=== PATIENT | female | born 1985 ===

== ENCOUNTER 2020-10-27 11:13 | Day surgery (SDC) | payer BC ==
--- NOTE | 2020-10-24 10:36 | History and Physical Report ---
History of Present Illness Date of examination: 10/27/20 History of present illness: 35 yo desires sterilization. As a result, she will present on 10/27/20 for her Lap BTL. PT seen and counseled via search director. No other complaints. No VB, d/c or pelvic pain. Past History Past Medical History: no pertinent history Past Surgical History: cholecystectomy, section Social history: no significant social history - Obstetrical History : 4 Para: 4 Medications and Allergies Allergies Allergy/AdvReac Type Severity Reaction Status Date / Time No Known Allergies Allergy Unverified 10/20/20 16:47 Home Medications Medication Instructions Recorded Confirmed Last Taken Type No Known Home Medications [No 10/20/20 10/20/20 Unknown History Reported Home Medications] Review of Systems All systems: negative (except HPI) - Physical Exam Cardiovascular: Regular rate, No murmurs Lungs: Positive: Clear to auscultation, Normal air movement Abdomen: Positive: normal appearance, soft. Negative: tenderness Vulva: both: normal Vagina: Positive: normal moisture. Negative: discharge Cervix: Negative: lesion, discharge Uterus: Positive: normal size, normal contour Adnexa: both: normal Results Result Diagrams: 10/25/20 10:15 All other labs normal. Assessment and Plan - Patient Problems (1) Sterilization Current Visit: No Status: Acute Plan to address problem: PT for Lap BTL on 10/27/20. PT fully consented for surgery including the approximately 07/999 risk of failure. She understands and accepts that. Patient fully consented for the surgery. Risks, benefits, and alternatives were all discussed with the patient including risk of bleeding, infection, and potential for injury. Patient understands and accepts these risks. Patient agrees to proceed with surgery. All questions were answered. H&P is up-to-date
[2020-10-25 10:53] LABS: Hematocrit 32.4 % (30.3-42.9); Hemoglobin 10.7 gm/dl (10.1-14.3); Mean Corpuscular HGB Conc 33 % (30-34); Mean Corpuscular Volume 80 fl (79-97); Platelet Count 270 K/mm3 (140-440); Red Blood Count 4.03 M/mm3 (3.65-5.03); Red Cell Distribution Width 16.6 % (13.2-15.2)
[~2020-10-27 11:13] MED LIST: ACETAMINOPHEN 500 MG TAB PO SCH; CELECOXIB 200 MG CAP PO NR; GABAPENTIN 300 MG CAP PO NR; LACTATED RINGERS 1,000 ML IV SCH; MIDAZOLAM 2 MG/2 ML INJ IV NR; SCOPOLAMINE TRANSDERMAL PATCH 72 HR TD NR
[2020-10-27] MEDS ORDERED: ONDANSETRON 4 MG/2 ML INJ IV PRN (12:02)
--- NOTE | 2020-10-27 12:02 | Anesthesia Day of Surgery ---
Anesthesia Day of Surgery - Day of Surgery Patient Examined: Yes Patient H&P Reviewed: Yes Patient is NPO: Yes
--- NOTE | 2020-10-27 12:02 | Anesthesia Consultation ---
Anesthesia Consult and Med Hx Date of service: 10/27/20 - Airway Anesthetic Teeth Evaluation: Good ROM Head & Neck: Adequate Mental/Hyoid Distance: Adequate Mallampati Class: Class I Intubation Access Assessment: Good - Pre-Operative Health Status ASA Pre-Surgery Classification: ASA1 Proposed Anesthetic Plan: General - Pulmonary Hx Smoking: No Hx Respiratory Symptoms: No - Cardiovascular System Hx Hypertension: No - Central Nervous System CVA: No - Endocrine Hx Renal Disease: No Hx Liver Disease: No Hx Insulin Dependent Diabetes: No Hx Non-Insulin Dependent Diabetes: No Hx Thyroid Disease: No - Other Systems Hx Obesity: Yes (BMI 33) - Additional Comments Anesthesia Medical History Comments: No hx anesthetic complications.
[2020-10-27] MEDS ORDERED: fentaNYL 100 MCG/2 ML INJ ONE (12:55)
[2020-10-27] MEDS ORDERED: propofoL 200 MG/20 ML VIAL IV ONE (12:56)
[2020-10-27] MEDS ORDERED: BUPIVACAINE/PF (0.25%) 2.5 MG/ML 30 ML VIAL INFILTRATI ONE (12:56)
[2020-10-27] MEDS ORDERED: GLYCOPYRROLATE 0.4 MG/2 ML INJ ONE ×2 (14:05→14:35)
[2020-10-27] MEDS ORDERED: NEOSTIGMINE 10MG/10 ML INJ MDV ONE (14:05)
[2020-10-27] MEDS ORDERED: SODIUM CHLORIDE 0.9% IRR 1,500 ML BOTTLE IR ONE (14:09)
[2020-10-27] MEDS ORDERED: BUPIVACAINE/PF (0.5%) 5 MG/1 ML 30 ML VIAL INFILTRATI ONE (14:09)
[2020-10-27] MEDS ORDERED: KETOROLAC 30 MG/1 ML INJ ONE (14:11)
--- NOTE | 2020-10-27 14:16 | Post Operative Note ---
Date of procedure: 10/27/20 Pre-op diagnosis: Sterilization Post-op diagnosis: same Findings: Normal uterus, tubes, ovaries. General abdominal survey also within normal limits. No significant scarring from her prior noted. Procedure: Indication: 35-year-old desires sterilization. As a result, patient here for a laparoscopic bilateral tubal ligation with Filshie clips. Procedure: Laparoscopic bilateral tubal ligation. Patient taken the operating room and prepped and draped in usual fashion. Attention was first turned vaginally where single-tooth tenaculum was applied to the anterior lip of the cervix and an acorn uterine manipulator was placed. Attention was now turned abdominally where a 5 mm incision was made in the umbilicus. Veres needle then placed in the abdominal cavity. The abdomen was appropriately insufflated with CO2 gas. Veres needle removed and the 5 mm trocar was placed in abdominal cavity. Placement confirmed with the camera. Attention was turned suprapubically where an 8 mm incision was made and the 8 mm trocar was placed suprapubically in the midline under direct visualization. Trocar placed successfully and without difficulty. Attention was first turned to assess in the abdomen and pelvis. Findings noted above. Attention turned to the tubal ligation where a Filshie clip was applied to each tube. Each clip encompassed the full width of the tube on each side and good hemostasis was not ed afterwards on both sides. At this point the abdomen was fully desufflated. Trochars were removed. Trocar sites were closed with 4-0 Vicryl in a subcuticular fashion followed by Marcaine. The acorn uterine manipulator and single-tooth tenaculum were removed. Procedure concluded at this point. Patient tolerated the procedure well. All instrument lap counts were correct. Patient taken to the recovery room in stable condition. Anesthesia: LACIA Surgeon: PHILIP NERI Estimated blood loss: minimal Pathology: none Condition: stable Disposition: PACU
--- NOTE | 2020-10-27 14:17 | Short Stay Summary ---
Short Stay Documentation Date of service: 10/27/20 Narrative H&P: Patient is status post an uncomplicated scheduled laparoscopic bilateral tubal ligation on 10/27/2020. Please see H&P and operative report for details. Patient sent home with instructions to follow-up 2 weeks postop - History H&P: dictated Social history: no significant social history - Allergies and Medications Current Medications: Allergies No Known Allergies Allergy (Unverified 10/20/20 16:47) Home Medications Medication Instructions Recorded Confirmed Last Taken Type No Known Home Medications [No 10/20/20 10/20/20 Unknown History Reported Home Medications] Active Medications Acetaminophen (Acetaminophen 500 Mg Tab) 1,000 mg PO PREOP CHIARA Stop: 10/27/20 23:01 Last Admin: 10/27/20 12:05 Dose: 1,000 mg Documented by: Celecoxib (Celecoxib 200 Mg Cap) 200 mg PO PREOP NR Stop: 10/27/20 23:01 Last Admin: 10/27/20 12:05 Dose: 200 mg Documented by: Gabapentin (Gabapentin 300 Mg Cap) 300 mg PO PREOP NR Stop: 10/27/20 23:01 Last Admin: 10/27/20 12:05 Dose: 300 mg Documented by: Hydromorphone HCl (Hydromorphone 1 Mg/1 Ml Inj) 0.5 mg IV Q10MIN PRN PRN Reason: Pain , Severe (7-10) Stop: 10/27/20 23:59 Lactated Ringer's (Lactated Ringers) 1,000 mls @ 100 mls/hr IV DIRECT CHIARA Stop: 10/27/20 23:59 Last Admin: 10/27/20 12:05 Dose: 100 mls/hr Documented by: Midazolam HCl (Midazolam 2 Mg/2 Ml Inj) 2 mg IV PREOP NR Stop: 10/27/20 23:01 Ondansetron HCl (Ondansetron 4 Mg/2 Ml Inj) 4 mg IV ONCE PRN PRN Reason: Nausea And Vomiting Stop: 10/27/20 23:59 Scopolamine (Scopolamine Transdermal Patch 72 Hr) 1 each TD PREOP NR Stop: 10/27/20 23:01 Last Admin: 10/27/20 12:05 Dose: 1 each Documented by: - Disposition Condition at discharge: Stable Disposition: DC-01 TO HOME OR SELFCARE - Discharge Diagnoses (1) Sterilization Status: Acute Short Stay Discharge Plan Follow up with: PRIMARY CARE, [Primary Care Provider] - 7 Days
[2020-10-27] MEDS ORDERED: LIDOCAINE MPF (2%) 20 MG/1 ML VIAL 5 ML ONE (14:20)
[2020-10-27] MEDS ORDERED: SUCCINYLCHOLINE CHLORIDE 200 MG/10 ML INJ MDV ONE (14:20)
[2020-10-27] MEDS ORDERED: ONDANSETRON 4 MG/2 ML INJ ONE (14:30)
[2020-10-27] MEDS ORDERED: dexAMETHasone 20 MG/5 ML VIAL ONE (14:30)
[2020-10-27] MEDS: HYDROmorphone 1 MG/1 ML INJ IV PRN ×3 (14:38→14:58)
[2020-10-27] MEDS ORDERED: GLYCOPYRROLATE 0.4 MG/2 ML INJ IV ONE (14:41)
[2020-10-27] MEDS ORDERED: oxyCODONE /ACETAMINOPHEN 5-325MG TAB PO PRN (14:50)
[2020-10-27 15:20] VITALS: BP 135/75
--- NOTE | 2020-10-27 16:09 | Post Anesthesia Evaluation ---
- Post Anesthesia Evaluation Patient Participated: Yes Airway Patent: Yes Stable Respiratory Function: Yes Nausea/Vomiting: No Temp > 96.8F: Yes Pain Manageable: Yes Adequeate Hydration: Yes Anesthesia Complications: No
== END 2020-10-27 16:00 | disposition home or self-care (01) ==
LOC: OR 11:13
PROVIDERS: ATTEND Obstetrics & Gynecology
DX: Z30.2 Encounter for sterilization (principal); E66.9 Obesity, unspecified; Z79.899 Other long term (current) drug therapy; Z90.49 Acquired absence of other specified parts of digestive tract; Z98.890 Other specified postprocedural states; Z86.2 Personal history of diseases of the blood and blood-forming organs and certain disorders involving the immune mechanism
CPT/HCPCS: 36415; 58671; 84703; 85027; J0330; J1100; J1170; J1885; J2405; J2704; J2710; J3010; J7120